=== PATIENT | female | born 1945 | race Caucasian/White ===

== ENCOUNTER 2016-10-12 21:09 | Emergency (ER) | payer OTHER ==
[2016-10-12 21:26] VITALS: BP 155/94
== END 2016-10-12 23:23 | disposition home or self-care (01) ==
LOC: ED 21:09
DX: S81.811A Laceration without foreign body, right lower leg, initial encounter (principal); M35.00 Sjogren syndrome, unspecified; E07.9 Disorder of thyroid, unspecified; Z79.899 Other long term (current) drug therapy; W18.30XA Fall on same level, unspecified, initial encounter; Y93.89 Activity, other specified; Y99.8 Other external cause status; Y92.89 Other specified places as the place of occurrence of the external cause
CPT/HCPCS: J2001